=== PATIENT | female | born 1970 | race Two or more races ===

== ENCOUNTER 2018-01-28 15:25 | Outpatient (CLI) | payer OTHER | END 2018-01-28 15:35 | disposition home or self-care (01) | LOC: RAD 501 15:25 | DX: R07.9 Chest pain, unspecified (principal) ==

== ENCOUNTER 2018-02-02 16:03 | Inpatient (IN) | payer OTHER ==
[~2018-02-02] VITALS: Ht 160 cm; Wt 74.8 kg
[2018-02-02] MEDS ORDERED: WELLBUTRIN SR150 MG PO (22:32)
[2018-02-08] MEDS ORDERED: OXYC1TAB9 PO (09:01)
== END 2018-02-08 09:14 | disposition home or self-care (01) | DRG 743 ==
LOC: OB/GYN 16:03
PROVIDERS: Obstetrics & Gynecology; Urology
PROC: 30233N1 Transfusion of Nonautologous Red Blood Cells into Peripheral Vein, Percutaneous Approach (ICD-10-PCS; 2018-02-03)
PROC: 0WJG0ZZ Inspection of Peritoneal Cavity, Open Approach (ICD-10-PCS; 2018-02-05)
PROC: 0TJB8ZZ Inspection of Bladder, Via Natural or Artificial Opening Endoscopic (ICD-10-PCS; 2018-02-05)
PROC: 0UT90ZZ Resection of Uterus, Open Approach (ICD-10-PCS; principal; 2018-02-05 07:00)
PROC: 0UT70ZZ Resection of Bilateral Fallopian Tubes, Open Approach (ICD-10-PCS; 2018-02-05 07:00)
DX: D25.1 Intramural leiomyoma of uterus (principal); D50.0 Iron deficiency anemia secondary to blood loss (chronic); N93.8 Other specified abnormal uterine and vaginal bleeding; F32.89 Other specified depressive episodes; N99.81 Other intraoperative complications of genitourinary system; N80.0 Endometriosis of uterus; N72 Inflammatory disease of cervix uteri

== ENCOUNTER 2024-01-13 06:05 | Day surgery (SDC) | payer OTHER ==
[~2024-01-13 06:05] MED LIST: ACID REDUCER20 M1 PO; AMLODIPINE-OLM1 EAC2 PO; LEVOTHYROXINE25 MCG PO; OXYC1TAB9 PO; WELLBUTRIN SR150 MG PO; ZYRTEC10 M3 PO; [UNRECOGNIZED DRUG - OTHER]
[2024-01-13] MEDS ORDERED: CEFAZOLIN SODIUM 1,000 MG VIAL ONE (08:28)
[2024-01-13] MEDS ORDERED: TRIAMCINOLONE ACETONIDE 40 MG/ML VIAL ONE (09:26)
[2024-01-13] MEDS ORDERED: BUPIVACAINE HCL/PF 0.5% 30ML ML ONE (09:26)
[2024-01-13] MEDS ORDERED: CEFAZOLIN SODIUM 1,000 MG VIAL IV ONE (10:00)
[2024-01-13] MEDS ORDERED: BUPIVACAINE HCL/PF 0.5% 30ML ML IJ ONE (10:00)
[2024-01-13] MEDS ORDERED: TRIAMCINOLONE ACETONIDE 40 MG/ML VIAL IJ ONE (10:00)
== END 2024-01-13 12:10 | disposition home or self-care (01) ==
LOC: CIR.AMB 06:05
PROVIDERS: ATTEND Surgery Surgery of the Hand
DX: M65.841 Other synovitis and tenosynovitis, right hand (principal); Z88.2 Allergy status to sulfonamides; Z88.1 Allergy status to other antibiotic agents; Z88.6 Allergy status to analgesic agent; Z20.822 Contact with and (suspected) exposure to COVID-19

== ENCOUNTER 2024-07-27 05:20 | Day surgery (SDC) | payer OTHER ==
[2024-07-27] MEDS ORDERED: BUPIVACAINE HCL/Mpf 0.5% 10ML VIAL ONE (06:35)
[2024-07-27] MEDS ORDERED: CEFAZOLIN SODIUM 1,000 MG VIAL ONE (06:35)
[2024-07-27] MEDS ORDERED: LIDOCAINE HCL 1% 20ML VIAL IJ ONE (06:35)
== END 2024-07-27 09:30 | disposition home or self-care (01) ==
LOC: CIR.AMB 05:20
PROVIDERS: ATTEND Surgery Surgery of the Hand
DX: M65.842 Other synovitis and tenosynovitis, left hand (principal); Z88.6 Allergy status to analgesic agent; Z88.2 Allergy status to sulfonamides; E03.9 Hypothyroidism, unspecified; I10 Essential (primary) hypertension